=== PATIENT | male | born 1960 | race Caucasian/White ===

== ENCOUNTER 2023-04-09 04:59 | Day surgery (SDC) | payer OTHER ==
[2023-04-07 12:26] VITALS: BMI 26.6
[2023-04-09] MEDS ORDERED: LIDOCAINE HCL 1%, 10 MG/ML (10ML VIAL) MDV ONE (11:31)
[2023-04-09] MEDS ORDERED: BUPIVACAINE HCL/PF 0.5% (5MG/ML) 10 ML VIAL ONE (11:31)
[2023-04-09] MEDS ORDERED: MIDAZOLAM HCL 2 MG/2 ML SINGLE DOSE VIAL ONE ×2 (11:46→12:46)
[2023-04-09] MEDS ORDERED: PROPOFOL 40 ML ONE (11:46)
[2023-04-09] MEDS ORDERED: ceFAZolin SODIUM 1 GM VIAL IVPB ONE (13:00)
[2023-04-09] MEDS ORDERED: PROPOFOL 20 ML ONE (13:32)
[2023-04-09] MEDS ORDERED: LIDOCAINE HCL 1%, 10 MG/ML (20ML VIAL) INF ONE ×2 (13:33)
[2023-04-09] MEDS ORDERED: BUPIVACAINE HCL/PF 0.5% (5MG/ML) 10 ML VIAL IJ ONE (13:34)
[2023-04-09] MEDS ORDERED: oxyCODONE HCL 5 MG TABLET PO PRN (14:34)
[2023-04-09] MEDS ORDERED: PROMETHAZINE HCL 25 MG/1 ML VIAL IVPB PRN (14:34)
[2023-04-09] MEDS ORDERED: ONDANSETRON 4 MG/2 ML VIAL IVPUSH PRN (14:34)
[2023-04-09] MEDS ORDERED: LACTATED RINGERS SOLUTION 1,000 ML IV SCH (14:45)
[2023-04-09 15:39] VITALS: RESP 18; TEMP 97.9
[2023-04-09 16:15] VITALS: BP 135/82; PULSE 61
== END 2023-04-09 16:29 | disposition home or self-care (01) ==
LOC: JASU-SURG 04:59
PROVIDERS: ATTEND Podiatrist Foot Surgery
PROC: 0QBN0ZZ Excision of Right Metatarsal, Open Approach (ICD-10-PCS; principal; 2023-04-09 13:00)
DX: M21.611 Bunion of right foot (principal); M20.5X1 Other deformities of toe(s) (acquired), right foot
CPT/HCPCS: 73630-TC-RT-FY; 88305-TC; 88311-TC; 94760